=== PATIENT | female | born 1945 | race Caucasian/White ===

== ENCOUNTER → 2016-03-22 | Outpatient (CLI) | payer OTHER ==
[~2016-03-22] VITALS: Ht 154.9 cm; Wt 106.3 kg
[~2016-03-22] MED LIST: ADVAIR 500/501 DISK IH; CALCIUM CITRAT1 EAC8 PO; CRANBERRY 4001 EAC1 PO; CYANOCOBALAM1000 MCG PO; ELAVIL100 MG PO; FIBER500 MG PO; NEURONTIN600 MG PO; OMEPRAZOLE40 M1 PO; PERCOCET 5/31 TABLET PO; PLAQUENIL200 MG PO; SALAGEN5 MG PO; SUDAFED 12-HOU120 MG PO; SYNTHROID137 MCG PO; THEO-DUR,THEOC300 MG PO; VITAMIN D400 UNIT PO
[2016-03-22 11:07] VITALS: BP 133/69
== END | disposition home or self-care (01) ==
LOC: IVINF 03-15 15:00
PROVIDERS: Internal Medicine Endocrinology, Diabetes & Metabolism
DX: R53.83 Other fatigue (principal); I95.9 Hypotension, unspecified
CPT/HCPCS: 80400; 82024 90; 82533 91; 96374; J0834